=== PATIENT | female | born 1985 | race African-American/Black ===

== ENCOUNTER 2016-08-25 20:54 | Emergency (ER) | payer MEDICAID, OTHER ==
[2016-08-25] MEDS ORDERED: PROMETHAZINE 25 MG/ML VIAL ONE (22:27)
[2016-08-25] MEDS ORDERED: KETOROLAC 60 MG/2 ML VIAL IM ONE (22:27)
[2016-08-25] MEDS ORDERED: DIPHENHYDRAMINE 25 MG CAP ONE ×2 (22:28→22:33)
== END 2016-08-25 23:37 | disposition home or self-care (01) ==
LOC: ER 20:54
DX: G43.109 Migraine with aura, not intractable, without status migrainosus (principal); F41.1 Generalized anxiety disorder
CPT/HCPCS: 93005; 96372